=== PATIENT | female | born 1965 | race Caucasian/White ===

== ENCOUNTER 2019-03-10 06:10 | Inpatient (IN) | payer OTHER ==
[2019-03-03 12:01] VITALS: BMI 28.0
--- NOTE | 2019-03-09 15:39 | HP ---
Admitting History and Physical - Admission Chief Complaint: right knee osteoarthritis x years History of Present Illness: 53 year old female presents in regard to her right knee. Longstanding history of right knee osteoarthritis. Patient complains of pain, limited ROM, difficulty ambulating and difficulty completing activities of daily living. Patient has failed conservative treatment measures including PO medications, injections, activity modification and exercise programs. At this point, patient would like to proceed with surgical treatment options - right total knee arthroplasty, MAKOplasty. - Past Medical History Pulmonary: Yes: Asthma ...LMP Comment: 18 months ago ...: No Psych: Yes: Depression Musculoskeletal: Yes: Osteoarthritis ENT: Yes: Other (hay fever) Endocrine: Yes: Hypothyroidism - Past Surgical History Additional Past Surgical History: See written history and physical. - Smoking History Smoking history: Never smoked - Alcohol/Substance Use Hx Alcohol Use: No Home Medications - Allergies Allergies/Adverse Reactions: Allergies Allergy/AdvReac Type Severity Reaction Status Date / Time walnut Allergy Swelling Verified 03/03/19 11:51 IV Contrast Dye Allergy Swelling Uncoded 03/03/19 11:51 seasonal Allergy Uncoded 03/03/19 11:54 - Home Medications Home Medications: Ambulatory Orders Albuterol Sulfate Inhaler - [Ventolin Hfa Inhaler -] 1 - 2 inh PO Q4H PRN Aripiprazole [Abilify] 10 mg PO DAILY 03/03/19 Bupropion HCl [Wellbutrin Xl] 300 mg PO DAILY 03/03/19 Levocetirizine Dihydrochloride [Xyzal] 5 mg PO DAILY 03/03/19 Levothyroxine [Synthroid -] 125 mcg PO DAILY 03/03/19 Losartan Potassium [Cozaar] 100 mg PO DAILY 03/03/19 Multivitamin [One-Daily Multi-Vitamin] 1 each PO DAILY 03/03/19 Oxycodone HCl/Acetaminophen [Percocet 5-325 mg Tablet] 1 tab PO Q4H PRN Paroxetine HCl [Paxil Cr] 50 mg PO DAILY 03/03/19 traZODone HCL [Trazodone HCl] 100 mg PO HS 03/03/19 Review of Systems - Review of Systems Musculoskeletal: reports: Crepitus (right knee), Decreased ROM (right knee), Joint Pain (right knee), Joint Swelling (right knee) Physical Examination Constitutional: Yes: Well Nourished, No Distress Eyes: Yes: Conjunctiva Clear HENT: Yes: Atraumatic Neck: Yes: Supple Cardiovascular: Yes: Regular Rate and Rhythm Respiratory: Yes: Regular Gastrointestinal: Yes: Soft ...Rectal Exam: Yes: Deferred Musculoskeletal: Yes: Joint Stiffness (right knee), Joint Swelling (right knee) Assessment/Plan 53 year old female presents in regard to her right knee. Longstanding history of right knee osteoarthritis. Patient complains of pain, limited ROM, difficulty ambulating and difficulty completing activities of daily living. Patient has failed conservative treatment measures including PO medications, injections, activity modification and exercise programs. At this point, patient would like to proceed with surgical treatment options - right total knee arthroplasty, MAKOplasty. Pros, cons, risks, benefits and alternatives of a right total knee arthroplasty, MAKOplasty - was discussed with the patient at length. Patient confirms her understanding and consents to proceed with a right total knee arthroplasty, MAKOplasty.
[2019-03-10] MEDS ORDERED: CELECOXIB 200 MG CAPSULE PO ONE (06:35)
[2019-03-10] MEDS ORDERED: GABAPENTIN 300 MG CAPSULE (FP) PO ONE (06:35)
[2019-03-10] MEDS ORDERED: CEFAZOLIN 2 GM in DEXTROSE 5%-WATER - 50 ML IVPB ONE (06:35)
[2019-03-10] MEDS ORDERED: TRANEXAMIC ACID 1000 MG/10 ML VIAL IVPUSH ONE (06:35)
[2019-03-10] MEDS ORDERED: oxyCODONE HCL 10 MG SUSTAINED ACTING TABLET PO ONE (06:35)
[2019-03-10] MEDS ORDERED: PANTOPRAZOLE 40 MG TABLET (FP) PO ONE (06:36)
[2019-03-10] MEDS ORDERED: VANCOMYCIN 1,000 MG VIAL (RESTRICTED TO ID ONLY) ONE (07:21)
[2019-03-10] MEDS ORDERED: ceFAZolin SODIUM 1 GM VIAL ONE ×2 (07:21→08:54)
[2019-03-10] MEDS ORDERED: BUPIVACAINE HCL/PF (5 MG/ML) 30 ML VIAL IJ ONE (07:33)
[2019-03-10] MEDS ORDERED: BUPIVACAINE LIPOSOME/PF (EXPAREL) 266 MG/20 ML VIAL ONE (07:33)
[2019-03-10] MEDS ORDERED: MIDAZOLAM HCL 2 MG/2 ML SINGLE DOSE VIAL ONE ×5 (07:33→10:31)
--- NOTE | 2019-03-10 08:29 | HP ---
History & Physical Update - History History: No Change - Physical Physical: No Change - Assessment Assessment: No Change - Plan Plan: No Change
[2019-03-10] MEDS ORDERED: SUCCINYLCHOLINE CHLORIDE 200 MG/10 ML VIAL ONE (08:45)
[2019-03-10] MEDS ORDERED: TRANEXAMIC ACID 1000 MG/10 ML VIAL ONE (08:54)
[2019-03-10] MEDS ORDERED: DEXAMETHASONE SOD PHOSPHATE 4 MG/1 ML VIAL ONE (08:54)
[2019-03-10] MEDS ORDERED: ONDANSETRON 4 MG/2 ML VIAL ONE (08:54)
[2019-03-10] MEDS ORDERED: VANCOMYCIN 1,000 MG VIAL (RESTRICTED TO ID ONLY) IVPB ONE (11:05)
[2019-03-10] MEDS ORDERED: TRANEXAMIC ACID 1000 MG/10 ML VIAL IVPB ONE (11:05)
--- NOTE | 2019-03-10 11:55 | SURG ---
Surgery Senior Sharepoint Developer Note Senior Sharepoint Developer: Madan Hughes PA-C Date of Service: 03/10/19 Diagnosis: Right knee osteoarthritis Procedure: Right knee total makoplasty I was present for the entirety of the operative procedure. For further detail, please refer to operative report. Visit type - Case Type Case Type: Scheduled - Emergency Emergency Visit: No - New patient This patient is new to me today: Yes Date on this admission: 03/10/19 - Critical Care Critical Care patient: No
[2019-03-10] MEDS ORDERED: oxyCODONE HCL 5 MG TABLET PO PRN (11:56)
[2019-03-10] MEDS ORDERED: ONDANSETRON 4 MG/2 ML VIAL IVPUSH PRN ×2 (11:56→12:23)
[2019-03-10] MEDS ORDERED: PROMETHAZINE HCL 25 MG/1 ML VIAL IVPUSH PRN (11:56)
[2019-03-10] MEDS ORDERED: KETOROLAC TROMETHAMINE 30 MG/1 ML VIAL IVPUSH ONE (12:02)
[2019-03-10] MEDS ORDERED: ACETAMINOPHEN INJECTION 100 ML IVPB ONE (12:04)
[2019-03-10] MEDS ORDERED: traMADol HCL 50 MG TABLET ONE (12:05)
[2019-03-10] MEDS ORDERED: KETOROLAC TROMETHAMINE 30 MG/1 ML VIAL ONE (12:05)
[2019-03-10] MEDS ORDERED: ACETAMINOPHEN 1000 MG/100 ML VIAL (NON FORMULARY) IVPB ONE ×2 (12:05→12:23)
[2019-03-10] MEDS ORDERED: ALBUTEROL SO4 8 GM HFA INHALER IH PRN (12:21)
--- NOTE | 2019-03-10 12:21 | OP ---
Operative Note - Note: Operative Date: 03/10/19 Pre-Operative Diagnosis: right knee OA Operation: right LOUIE TKA Surgeon: Servando Mccallum Senior Business Development Analyst: Kasie Coelho Anesthesia: Spinal Estimated Blood Loss (mls): 100
[2019-03-10] MEDS ORDERED: MAGNESIUM HYDROX 2400MG/30ML ORAL SUSPENSION 30 ML CUP PO PRN (12:23)
[2019-03-10] MEDS ORDERED: MAG HYDROX/AL HYDROX/SIMETH 30 ML UNIT-DOSE CUP PO PRN (12:23)
[2019-03-10] MEDS ORDERED: LACTATED RINGERS SOLUTION 1,000 ML IV SCH (12:30)
[2019-03-10] MEDS ORDERED: traMADol HCL 50 MG TABLET PO ONE (12:45)
[2019-03-10] MEDS: ACETAMINOPHEN 325 MG TABLET (FP) PO SCH ×2 (14:07→17:47)
[2019-03-10] MEDS: KETOROLAC TROMETHAMINE 30 MG/1 ML VIAL IVPUSH SCH ×2 (14:09→17:48)
[2019-03-10] MEDS: traMADol HCL 50 MG TABLET PO SCH ×2 (14:10→17:47)
[2019-03-10] MEDS: oxyCODONE HCL 5 MG TABLET PO PRN ×2 (16:10→22:08)
[2019-03-10] MEDS ORDERED: CEFAZOLIN 2 GM/D5W 2 GM/50 ML ML IVPB SCH (18:00)
[2019-03-10] MEDS ORDERED: DEXAMETHASONE SOD PHOSPHATE 10 MG/1 ML VIAL IVPB ONE (20:00)
[2019-03-10] MEDS: CEFAZOLIN 2 GM/D5W 2 GM/50 ML ML IVPB SCH (22:06)
[2019-03-10] MEDS: CELECOXIB 200 MG CAPSULE PO SCH (22:07)
[2019-03-10] MEDS: GABAPENTIN 300 MG CAPSULE (FP) PO SCH (22:07)
[2019-03-10] MEDS: oxyCODONE HCL 10 MG SUSTAINED ACTING TABLET PO SCH (22:07)
[2019-03-10] MEDS: traZODone HCL 100 MG TABLET (FP) PO SCH (22:07)
[2019-03-10] MEDS: ASCORBIC ACID 500 MG TABLET (FP) PO SCH (22:08)
[2019-03-10] MEDS: SENNOSIDES/DOCUSATE COMBO (SENNA PLUS) TABLET (UD) PO SCH (22:08)
[2019-03-11] MEDS: KETOROLAC TROMETHAMINE 30 MG/1 ML VIAL IVPUSH SCH ×2 (00:26→05:53)
[2019-03-11] MEDS: ACETAMINOPHEN 325 MG TABLET (FP) PO SCH ×4 (00:26→17:41)
[2019-03-11] MEDS: traMADol HCL 50 MG TABLET PO SCH ×4 (00:27→17:42)
--- NOTE | 2019-03-11 00:46 | SPEC ---
DATE OF OPERATION: 03/10/2019 PREOPERATIVE DIAGNOSIS: Right knee osteoarthritis. POSTOPERATIVE DIAGNOSIS: Right knee osteoarthritis. PROCEDURE: Right total knee replacement with Makoplasty robotic navigation. ATTENDING: Karina Rod M.D. HARDWARE ASSEMBLER: Kimberlee Obando ANESTHESIA: Spinal plus sedation. ESTIMATED BLOOD LOSS: 100 mL. COMPLICATIONS: None. DISPOSITION: The patient was transferred to the PACU in stable condition. IMPLANTS USED: [place] Triathlon cementless implants size 3 femoral and tibial components, 13-mm posterior stabilized polyethylene component, 29-mm patellar component. INDICATION: This is a 53-year-old female who presents to the office complaining of right knee pain. She was seen and examined by Dr. Rod with the diagnosis of right knee osteoarthritis. The patient had been treated initially nonoperatively with injections of medications and physical therapy, but continued to have severe pain and ambulatory dysfunction. She was therefore indicated for right total knee replacement with Makoplasty robotic navigation. The risks, benefits, and alternatives to the procedure are explained to the patient in great detail, and she elected to proceed with surgery. DESCRIPTION OF PROCEDURE: On the day of surgery, the patient was taken to the operating room and placed on the OR table. Spinal anesthesia was administered by the anesthesiologist. The patient was then positioned supine on the table and all bony prominences were padded. The knee was then prepped and draped in the usual sterile fashion and intravenous antibiotics were given for infection prophylaxis. A surgical time-out was then performed with the team, and the patients identity, procedure, side, availability of implants, and the administration of antibiotics was confirmed. With the knee flexed, a midline incision was made and carried down through the subcutaneous fat to the underlying retinaculum. A medial parapatellar arthrotomy was performed. This was followed by a subperiosteal dissection of the tissue off the proximal, medial tibia. A portion of fat pad was removed from under the patellar tendon, and a small portion of fat was excised off the distal supracondylar femur. Electrocautery and an So1[employer] bipolar sealing device were used to achieve hemostasis. The knee was then flexed further and the anterior horn of the lateral meniscus was released from the midline. Next, the anterior and posterior cruciate ligaments were transected. Grade 4 changes were noted diffusely throughout the knee. Femoral and tibial checkpoints were then placed in the appropriate location using a mallet. Two parallel bicortical self-drilling pins were placed in the tibial diaphysis after making stab incisions and bluntly dissecting down to bone. Two pins were then placed in the distal supracondylar femur. The [place] [place] navigation arrays were then attached to both the femoral and tibial pins and the lower extremity was then registered to the robotic navigation device using various joint movements, as well as inputting several dozen reference points. The knee was then taken through a full range of motion with a corrective force applied. Alignment in varus/valgus as well as flexion/extension and soft tissue balance was measured in various positions. The navigation device showed a numerical and graphic representation of the soft tissue balance. The components were repositioned virtually using the software until optimal soft tissue balance was achieved on screen. Once this was accomplished, the final plan was saved and sent to the robot. Self-retaining retractors were then placed at the joint line for exposure and protection of the collateral ligaments. The robot was brought into the sterile field and registered with the navigation device. The robotic arm with attached oscillating saw blade was then used to perform femoral and tibial bone cuts as per the saved software plan. The femoral box cut was made using the appropriately sized manual cutting guide. The knee was then irrigated. Trial components were placed and the knee was taken through a full range of motion to assess soft tissue balance and alignment. The range of motion was found to be excellent and the soft tissue balance was optimal and according to plan. The knee was then put into extension and the patella everted. The synovium around the patella was circumscribed with electrocautery. A caliper was used to measure the patellar thickness and a saw was then used to resect the patella at the chondro-osseous junction. The cut surface was then sized and drilled for the appropriate patellar button, with care taken to medialize it. A trial patella was then placed and the knee was again taken through a full range of motion. The knee was found to have both good balance and good patellar tracking. All of the components were removed except the tibial base plate. The appropriate instrumentation was used to drill and punch the proximal tibia for the keel of the final component. All bony surfaces were then cleaned with pulsatile lavage and dried. Cementless [place] Triathlon knee replacement components were then impacted in place and found to have a stable press-fit. A trial polyethylene component was placed and the knee was again taken through a full range of motion to assess stability, balance, and patellar tracking. This was found to be optimal and the trial polyethylene was exchanged for the appropriately sized real implant. The wound was then thoroughly irrigated with normal saline. A 3-minute dilute Betadine lavage was performed. The knee was again irrigated using a pulsatile lavage device. A periarticular injection was used to locally infiltrate the capsular tissues surrounding the implant and prosthesis. Then No. 1 Polysorb and 0 VLoc 180 barbed sutures were used to close the arthrotomy. Then No. 1 Polysorb and 2-0 VLoc 90 sutures were used in the subcutaneous tissues. Then 4-0 undyed Vicryl and Dermabond skin adhesive was used to close the stab incisions made for the navigation pins. The skin was closed using both 3-0 VLoc 90 suture in a running subcuticular fashion and Dermabond skin adhesive. Once this was completed a sterile Aquacel dressing and compressive Dinesh-wrap was applied. The patient was then awakened and taken to the PACU in stable condition. KARINA ROD M.D. [id number]
[2019-03-11] MEDS: CEFAZOLIN 2 GM/D5W 2 GM/50 ML ML IVPB SCH (04:19)
[2019-03-11] MEDS: LEVOTHYROXINE NA 125 MCG TABLET (FP) PO SCH (06:16)
[2019-03-11] MEDS: ASPIRIN 325 MG TABLET PO SCH (08:01)
[2019-03-11 08:09] LABS: HEMATOCRIT 28.6 % (32.4-45.2); HEMOGLOBIN 9.9 GM/dl (10.7-15.3); MCH 31.8 pg (25.7-33.7); MCHC 34.5 g/dl (32.0-36.0); MEAN CELL VOLUME 92.2 fl (80-96); MEAN PLT VOLUME 8.3 fl (7.5-11.1); PLATELET COUNT 247 K/MM3 (134-434); RDW 12.3 % (11.6-15.6); WHITE BLOOD COUNT 7.5 K/mm3 (4.0-10.8)
[2019-03-11 08:31] LABS: ANION GAP 9 MMOL/L (8-16); BLOOD UREA NITROGEN 8 mg/dl (7-18); CALCIUM 8.5 mg/dl (8.5-10); CHLORIDE 105 mmol/L (98-107); CO2 25 mmol/L (21-32); CREATININE 0.7 mg/dl (0.55-1.3); GLUCOSE,RANDOM 140 mg/dl (74-106); POTASSIUM 4.6 mmol/L (3.5-5.1); SODIUM 139 mmol/L (136-145)
[2019-03-11] MEDS: oxyCODONE HCL 10 MG SUSTAINED ACTING TABLET PO SCH ×2 (09:11→21:26)
[2019-03-11] MEDS: CELECOXIB 200 MG CAPSULE PO SCH ×2 (09:11→21:25)
[2019-03-11] MEDS: SENNOSIDES/DOCUSATE COMBO (SENNA PLUS) TABLET (UD) PO SCH ×2 (09:11→21:26)
[2019-03-11] MEDS: LORATADINE 10 MG TABLET PO SCH (09:12)
[2019-03-11] MEDS: MULTIVITAMINS (DAILY MVI) TABLET (FP) PO SCH (09:12)
[2019-03-11] MEDS: GABAPENTIN 300 MG CAPSULE (FP) PO SCH ×2 (09:12→21:26)
[2019-03-11] MEDS: ASCORBIC ACID 500 MG TABLET (FP) PO SCH ×2 (09:12→21:26)
[2019-03-11] MEDS: PANTOPRAZOLE 40 MG TABLET (FP) PO SCH (09:13)
[2019-03-11] MEDS: LOSARTAN POTASSIUM 50 MG TABLET (FP) PO SCH (09:16)
[2019-03-11] MEDS ORDERED: PATIENT'S OWN MEDICATION (NON-FORMULARY) (Losartan Potassium [Cozaar] 100 MG) PO SCH (10:00)
[2019-03-11] MEDS ORDERED: ARIPiprazole 5 MG TABLET (FP) PO SCH (10:00)
--- NOTE | 2019-03-11 12:32 | PN ---
Progress Note (short form) - Note Progress Note: ANESTHESIA POSTOP 53 YO FEMALE POD#1 s/p R TKA, spinal anesthesia and PNB Patient sitting in chair. Reports pain is adequately controlled, tolerating PO, was able to participate in PT VSS, Afebrile Continue current care. Encouraged IS.
[2019-03-11] MEDS: oxyCODONE HCL 5 MG TABLET PO PRN ×2 (14:55→22:07)
[2019-03-11] MEDS: PAROXETINE HCL 25 MG PO SCH (15:59)
[2019-03-11] MEDS: traZODone HCL 100 MG TABLET (FP) PO SCH (21:25)
--- NOTE | 2019-03-11 23:55 | PN ---
Progress Note (short form) - Note Progress Note: Pt seen and examined. Doing well. AVSS Selected Entries 03/11/19 22:00 Temperature 98.5 F Pulse Rate 82 Respiratory 18 Rate Blood Pressure 110/70 O2 Sat by Pulse 96 Oximetry (%) Oxygen Delivery Room Air Method Laboratory Tests 03/11/19 03/11/19 07:10 07:10 WBC 7.5 Hgb 9.9 L Hct 28.6 L Plt Count 247 Sodium 139 Potassium 4.6 Chloride 105 Carbon Dioxide 25 Anion Gap 9 BUN 8 Creatinine 0.7 Creat Clearance w eGFR 87.87 Random Glucose 140 H Calcium 8.5 Gen: NAD RLE: c/d/i, NVID A/P POD#1 s/p R Ugstavo TKA PT/OOB D/C home in AM
[2019-03-12] MEDS: traMADol HCL 50 MG TABLET PO SCH ×3 (00:03→11:59)
[2019-03-12] MEDS: ACETAMINOPHEN 325 MG TABLET (FP) PO SCH ×3 (00:03→12:00)
--- NOTE | 2019-03-12 00:54 | DS ---
Physical Examination Vital Signs: Vital Signs Temperature 98.5 F 03/11/19 22:00 Pulse Rate 82 03/11/19 22:00 Respiratory Rate 18 03/11/19 22:00 Blood Pressure 110/70 03/11/19 22:00 O2 Sat by Pulse Oximetry (%) 96 03/11/19 22:00 Labs: CBC, BMP 03/11/19 07:10 03/11/19 07:10 Discharge Summary Reason For Visit: RIGHT KNEE OSTEOARTHRITIS Current Active Problems Osteoarthritis of right knee (Acute) Procedures: Principal: LOUIE TKA Hospital Course: Admitted for elective surgery. Procedure performed without complications. Pt received postoperative antibiotic prophylaxis and DVT ppx. Ambulated with physical therapy. Stable for discharge home with outpatient followup. Condition: Stable - Instructions Diet, Activity, Other Instructions: Dr. Mccallum - Knee Replacement Instructions Keep the Aquacel dressing on until removed by Dr. Mccallum in 10-14 days - it is antibacterial and waterproof and you can shower with it on. Call the office for a follow-up appointment with Dr. Mccallum in 10-14 days. Take one Aspirin 325mg daily for 6 weeks to prevent blood clots in your legs. Take one Pantoprazole 40mg daily for 6 weeks to protect against heartburn and ulcers. Take Cephalexin (antibiotic) 3x/day for 10 days to help prevent skin infection. Take Celebrex 200mg twice daily for 30 days to reduce swelling and inflammation. Take a multivitamin, stool softener, and extra Vitamin C supplement daily. For pain: *Mild pain (1-3/10): Take 1 Tramadol tablet every 4 hours as needed. Moderate pain (4-6/10): Take 1 Tramadol tablet and 1 Percocet tablet every 4 hours as needed. Severe pain (7-10/10): Take 1 Tramadol tablet and 2 Percocet tablets every 4 hours as needed. Activity: You can put as much weight on the operative leg as you want. Right after you get home, there will be a physical therapist coming to your house to help you walk around and bend/straighten your knee. After your follow-up appointment, you will be sent for more intensive outpatient physical therapy which will include machines and equipment that the home therapist cannot bring to your house. Always use a walker or cane for balance and to prevent falls. Expect to see swelling/bruising from the operative site all the way down to your toes. Wear the compression stocking on the operative side during the day to minimize how much swelling there is in your foot/ankle. Don't wear the stocking at night. You don't have to wear a stocking on the other side. Disposition: [facility]NS/HOME HEALTH CARE - Home Medications Comprehensive Discharge Medication List: Ambulatory Orders Albuterol Sulfate Inhaler - [Ventolin HFA Inhaler -] 1 - 2 inh PO Q4H PRN Aripiprazole [Abilify] 10 mg PO DAILY 03/03/19 Bupropion HCl [Wellbutrin Xl] 300 mg PO DAILY 03/03/19 Levocetirizine Dihydrochloride [Xyzal] 5 mg PO DAILY 03/03/19 Levothyroxine [Synthroid -] 125 mcg PO DAILY 03/03/19 Losartan Potassium [Cozaar] 100 mg PO DAILY 03/03/19 Multivitamin [One-Daily Multi-Vitamin] 1 each PO DAILY 03/03/19 Paroxetine HCl [Paxil Cr] 50 mg PO DAILY 03/03/19 traZODone HCL [Trazodone HCl] 100 mg PO HS 03/03/19 Ascorbic Acid [Vitamin C -] 500 mg PO BID tablet 03/12/19 Aspirin [ASA -] 325 mg PO DAILY@0800 tablet 03/12/19 Celecoxib [CeleBREX -] 200 mg PO BID #60 capsule 03/12/19 Cephalexin Monohydrate [Keflex -] 500 mg PO TID #30 capsule 03/12/19 Oxycodone HCl/Acetaminophen [Percocet 5-325 mg Tablet] 1 - 2 tab PO Q4H PRN #60 tablet MDD 10 03/12/19 Pantoprazole Sodium [Protonix -] 40 mg PO DAILY #40 tablet.ec 03/12/19 Sennosides/Docusate Sodium [Pericolace -] 2 tablet PO BID tablet 03/12/19 traMADol HCL [Ultram -] 50 mg PO Q4H PRN #60 tablet MDD 6 03/12/19
[2019-03-12] MEDS: LEVOTHYROXINE NA 125 MCG TABLET (FP) PO SCH (06:41)
[2019-03-12] MEDS: ASPIRIN 325 MG TABLET PO SCH (08:02)
[2019-03-12 08:08] LABS: HEMATOCRIT 29.2 % (32.4-45.2); HEMOGLOBIN 9.5 GM/dl (10.7-15.3); MCH 30.1 pg (25.7-33.7); MCHC 32.5 g/dl (32.0-36.0); MEAN CELL VOLUME 92.4 fl (80-96); MEAN PLT VOLUME 8.5 fl (7.5-11.1); PLATELET COUNT 260 K/MM3 (134-434); RBC 3.16 M/mm3 (3.60-5.2); RDW 12.6 % (11.6-15.6); WHITE BLOOD COUNT 6.6 K/mm3 (4.0-10.8)
[2019-03-12] MEDS: oxyCODONE HCL 5 MG TABLET PO PRN (08:57)
[2019-03-12] MEDS ORDERED: PT OWN MED DRAWER 7, Y5N ONE (08:59)
[2019-03-12 09:01] VITALS: BP 100/50; PULSE 78; TEMP 98.2
[2019-03-12] MEDS: GABAPENTIN 300 MG CAPSULE (FP) PO SCH (09:05)
[2019-03-12] MEDS: LORATADINE 10 MG TABLET PO SCH (09:05)
[2019-03-12] MEDS: CELECOXIB 200 MG CAPSULE PO SCH (09:05)
[2019-03-12] MEDS: ASCORBIC ACID 500 MG TABLET (FP) PO SCH (09:06)
[2019-03-12] MEDS: MULTIVITAMINS (DAILY MVI) TABLET (FP) PO SCH (09:06)
[2019-03-12] MEDS: SENNOSIDES/DOCUSATE COMBO (SENNA PLUS) TABLET (UD) PO SCH (09:06)
[2019-03-12] MEDS: PANTOPRAZOLE 40 MG TABLET (FP) PO SCH (09:06)
[2019-03-12] MEDS: PAROXETINE HCL 25 MG PO SCH (09:06)
[2019-03-12] MEDS: oxyCODONE HCL 10 MG SUSTAINED ACTING TABLET PO SCH (09:18)
[2019-03-12] MEDS: LOSARTAN POTASSIUM 50 MG TABLET (FP) PO SCH (09:18)
[2019-03-12] MEDS ORDERED: ARIPiprazole 10 MG TABLET PO SCH (10:00)
--- NOTE | 2019-03-12 15:08 | PATH ---
Surgical Pathology Report Patient Name: SMILEY OLEARY Med. Rec. #: [id number] /Age/Gender: 1965 (Age: 53) / F Account: [id number] Location: [facility] MED-SURG Taken: 03/10/2019 Received: 03/10/2019 Reported: 03/12/2019 Physicians: Servando Mccallum M.D. Specimen(s) Received BONE RIGHT KNEE Clinical History Right knee osteoarthritis Final Diagnosis BONE, RIGHT KNEE, TOTAL KNEE REPLACEMENT: DEGENERATIVE JOINT DISEASE. Electronically Signed Nikole Sethi M.D. Gross Description Received in formalin labeled "bone right knee," is a 12.5 x 1.0 x 1.8 cm aggregate of multiple portions of bone and soft tissue. The tibial plateau measures 7.5 x 4.8 x 1.5 cm. There are multiple areas of eburnation present, measuring up to 1.8 cm in greatest dimension. The remaining articular surfaces are jones-brown and diffusely granular. The underlying trabecular bone is yellow and hard. A printing supplies sales representative section is submitted in one cassette, following decalcification. 03/11/201903/11/2019
== END 2019-03-12 12:05 | disposition home health service (06) | DRG 470 ==
LOC: FM/S 06:10
PROVIDERS: ADMIT Student in an Organized Health Care Education/Training Program; ATTEND Student in an Organized Health Care Education/Training Program
PROC: 8E0Y0CZ Robotic Assisted Procedure of Lower Extremity, Open Approach (ICD-10-PCS; 2019-03-10)
PROC: 0SRC0JA Replacement of Right Knee Joint with Synthetic Substitute, Uncemented, Open Approach (ICD-10-PCS; principal; 2019-03-10 09:19)
DX: M17.11 Unilateral primary osteoarthritis, right knee (principal); E03.9 Hypothyroidism, unspecified; F32.9 Major depressive disorder, single episode, unspecified; J45.909 Unspecified asthma, uncomplicated
CPT/HCPCS: 36415; 73560-TC-RT-FY; 80048; 85027; 88304-TC; 88311-TC; 97116-GP; 97163-GP; J0131; J1100